=== PATIENT | female | born 1965 | race American Indian/Alaskan Native ===

== ENCOUNTER 2018-05-02 08:47 | Emergency (ER) | payer OTHER ==
[2018-05-02 08:55] VITALS: RESP 16; TEMP 98.8; O2SAT 98
[2018-05-02] MEDS ORDERED: Lidocaine 5% Patch TD STA (09:17)
--- NOTE | 2018-05-02 09:20 | C.PDOC ---
History Of Present Illness 52 y/o female present to the ER complaining of persistent left thigh pain for four days. The patient admits to experiencing a fall onto wet floor that resulted in her landing on the back of her right thigh. She report that the pain worsens with weight bearing. The patient took motrin (400mg) at home with mild relief. She denies any radiating pain, dizziness or numbness. CO PERSIST L THIGH PAIN X 4 DAYS. S/P ACCID SLIP AND FALL ON WET FLOOR, LANDED ON BACK OF L THIGH. +INITIAL BRUISING. PAIN LOCALIZED, WORSE W WT BEAR. MOD IMPROVE W MOTRIN 400 MG BUT REQUESTING ADDL MEDS FOR PERSIST PAIN. DENIES OTHER ASSOC INJURIES OR SX EXAM NAD NONTOXIC HEENT ATRAUM EXT LLE: +BRUISING POST PROX L THIGH. NONTEND, NO GROSS DEFORM. SKIN INTACT NEURO NO FOCAL DEF GAIT AMBUL W MINOR LIMP - HPI Time Seen by Provider: 05/02/18 09:14 Chief Complaint (Nursing): Lower Extremity Problem/Injury History Per: Patient History/Exam Limitations: no limitations Onset/Duration Of Symptoms: Days Location Of Injury: Left: Thigh Recent travel outside of the [place]: No - Fall Fall:Prior To Injury: Slipped Past Medical History Reviewed: Historical Data, Nursing Documentation, Vital Signs Vital Signs: Last Vital Signs Temp 98.8 F 05/02/18 08:51 Pulse 78 05/02/18 09:26 Resp 16 05/02/18 09:26 BP 127/81 05/02/18 09:26 Pulse Ox 98 05/02/18 11:08 - Medical History PMH: No Chronic Diseases Surgical History: No Surg Hx Family History: States: Unknown Family Hx - Social History Hx Tobacco Use: No Hx Alcohol Use: Yes Hx Substance Use: No Review Of Systems Except As Marked, All Systems Reviewed And Found Negative. Constitutional: Negative for: Fever Musculoskeletal: Positive for: Leg Pain (left thigh pain) Skin: Negative for: Lesions Neurological: Negative for: Weakness, Numbness Physical Exam - Physical Exam Appears: Well, Non-toxic, Toxic Skin: Normal Color, Warm, No Rash Head: Atraumatic, Normacephalic Eye(s): bilateral: Normal Inspection, PERRL, EOMI Ear(s): Bilateral: Normal Oral Mucosa: Moist Neck: Normal ROM, Supple Chest: Symmetrical Cardiovascular: Rhythm Regular, No Murmur Respiratory: Normal Breath Sounds, No Rales, No Rhonchi, No Wheezing, Other ( NARD) Gastrointestinal/Abdominal: Bowel Sounds, No Tenderness Back: Normal Inspection Extremity: Other ( LLE: +BRUISING POST PROX L THIGH. NONTEND, NO GROSS DEFORM.) Extremity: Bilateral: Atraumatic Pulses: Left Dorsalis Pedis: Normal, Right Dorsalis Pedis: Normal Neurological/Psych: Oriented x3 Gait: Other (GAIT Ambulating W minor limp) Other Neurological Findings: Other (no focal deficit ) ED Course And Treatment O2 Sat by Pulse Oximetry: 98 (RA) Pulse Ox Interpretation: Normal Progress Note: Impression: 52 y/o female with persistent left thigh pain due to fall (slipped). Plan: -- Lidoderm 5% 2 ea TD. --Motrin 600 mg PO. -- Tylenol 650 mg PO. --Flexeril 10 mg PO Disposition Counseled Patient/Family Regarding: Diagnosis, Need For Followup, Rx Given - Disposition Referrals: YOUR,PMD [Other] Disposition: HOME/ ROUTINE Disposition Time: 09:19 Condition: IMPROVED Prescriptions: Acetaminophen [Tylenol Extra Strength] 2 tab PO Q6 #30 tablet Cyclobenzaprine [Flexeril] 10 mg PO TID #15 tab Ibuprofen [Motrin] 600 mg PO Q6 #30 tab Lidocaine 5% [Lidoderm] 1 ea TD PRN PRN #10 patch PRN Reason: Pain, Moderate (4-7) Instructions: Contusion (DC) Forms: [employer] (Yoruba) - Clinical Impression Clinical Impression: Thigh contusion - PA / [employer] / Resident Statement MD/DO has reviewed & agrees with the documentation as recorded. - Scribe Statement The provider has reviewed the documentation as recorded by the Scribe (Angie Faustin) Provider Attestation: All medical record entries made by the Scribe were at my direction and personally dictated by me. I have reviewed the chart and agree that the record accurately reflects my personal performance of the history, physical exam, medical decision making, and the department course for this patient. I have also personally directed, reviewed, and agree with the discharge instructions and disposition.
[2018-05-02] MEDS ORDERED: Lidocaine 5% Patch TD ONE (09:24)
[2018-05-02 09:27] VITALS: BP 127/81; PULSE 78
== END 2018-05-02 09:26 | disposition home or self-care (01) ==
LOC: C.ER 08:47
DX: S70.12XA Contusion of left thigh, initial encounter (principal); W01.0XXA Fall on same level from slipping, tripping and stumbling without subsequent striking against object, initial encounter; Y92.9 Unspecified place or not applicable